=== PATIENT | female | born 1940 | race Caucasian/White ===

== ENCOUNTER 2016-11-12 10:59 | Emergency (ER) | payer MEDICARE, MEDICAID ==
[~2016-11-12] VITALS: Ht 165.1 cm; Wt 71.4 kg
[~2016-11-12 10:59] MED LIST: HYDR-3240 PO
[2016-11-12] MEDS ORDERED: TRAZ100T15 PO (11:10)
[2016-11-12] MEDS ORDERED: GABA300C10 PO (11:10)
[2016-11-12] MEDS ORDERED: OMEP40CA6 PO (11:10)
[2016-11-12] MEDS ORDERED: LEVO112T4 PO (11:10)
[2016-11-12] MEDS ORDERED: SODIUM CHLORIDE 0.9% 1,000 ML IV ONE (11:28)
[2016-11-12] MEDS ORDERED: MORPHINE SULFATE 4 MG/ML, 1ML IVPush ONE (11:30)
[2016-11-12] MEDS ORDERED: ONDANSETRON 2MG/ML, 2ML IVPush ONE (11:30)
[2016-11-12] MEDS ORDERED: SODIUM CHLORIDE FLUSH 10ML SYR IVF ONE ×2 (11:30)
[2016-11-12] MEDS ORDERED: ONDANSETRON 2MG/ML, 2ML ONE (11:37)
[2016-11-12] MEDS ORDERED: MORPHINE SULFATE 4 MG/ML, 1ML ONE (11:37)
[2016-11-12 11:51] LABS: PATH.CAST-FLAG NOT PRESENT; SPERM-FLAG NOT PRESENT; SRC-FLAG NOT PRESENT; XTAL-FLAG NOT PRESENT; YLC-FLAG NOT PRESENT
[2016-11-12 11:52] LABS: HEMOGLOBIN 12.9 g/dL (11.7-16.4)
[2016-11-12 12:01] LABS: BLOOD UREA NITROGEN 13 mg/dL (7-18)
[2016-11-12] MEDS ORDERED: OMNIPAQUE 350 MG/ML, 100ML BOTTLE ONE (13:12)
[2016-11-12 13:39] VITALS: BP 134/61
== END 2016-11-12 15:21 | disposition home or self-care (01) ==
LOC: ED 13:14
DX: R10.12 Left upper quadrant pain (principal); K21.9 Gastro-esophageal reflux disease without esophagitis; E07.9 Disorder of thyroid, unspecified
CPT/HCPCS: 36415; 74177; 80048; 81001; 82040; 85025; 87086; 96361; 96374; 96375; 99285; J2405; J7030; Q9967

== ENCOUNTER 2018-01-04 12:30 | Emergency (ER) | payer MEDICARE, MEDICAID ==
[~2018-01-04] VITALS: Ht 165.1 cm; Wt 77.5 kg
[~2018-01-04 12:30] MED LIST changes: +GABA300C10 PO; +LEVO112T4 PO; +OMEP40CA6 PO; +TRAZ100T15 PO
[2018-01-04] MEDS ORDERED: GABA-827 PO (12:44)
[2018-01-04] MEDS ORDERED: ACYC-113 PO (12:49)
[2018-01-04] MEDS ORDERED: SODIUM CHLORIDE 0.9% 1,000ML IVBOLUS ONE (13:00)
[2018-01-04] MEDS ORDERED: SODIUM CHLORIDE FLUSH 10ML SYR IVF ONE (13:00)
[2018-01-04] MEDS ORDERED: MECLIZINE CHEWABLE 25 MG TAB ONE (13:20)
[2018-01-04] MEDS ORDERED: MECLIZINE CHEWABLE 25 MG TAB PO ONE (13:30)
[2018-01-04 13:44] LABS: BASOPHILS # (AUTO) 0.02 x10^3/uL (0-0.1); BASOPHILS % (AUTO) 0 % (0-1); EOSINOPHILS % (AUTO) 2 % (1-7); LYMPHOCYTES # (AUTO) 1.57 x10^3/uL (1-3.4); LYMPHOCYTES % (AUTO) 27 % (22-44); MD NO; MEAN CORPUSCULAR HEMOGLOBIN 30.4 pg (27.0-34.8); MEAN PLATELET VOLUME 7.9 fL (7.4-10.4); MONOCYTES # (AUTO) 0.44 x10^3/uL (0.2-0.8); MONOCYTES % (AUTO) 7 % (2-9); NEUTROPHILS # (AUTO) 3.76 x10^3/uL (1.8-6.8); NEUTROPHILS % (AUTO) 64 % (42-75); PLATELET COUNT 253 x10^3/uL (130-400); RED BLOOD COUNT 4.83 x10^6/uL (3.82-5.3); RED CELL DISTRIBUTION WIDTH 13.4 % (9.6-15.2)
[2018-01-04 13:49] LABS: CHLORIDE 106 mmol/L (98-107)
[2018-01-04 13:50] LABS: MICROSCOPIC NOT IND
[2018-01-04 13:55] LABS: ALBUMIN 3.5 g/dL (3.4-5.0); ANION GAP 6 mmol/L (5-15); CALCIUM 8.3 mg/dL (8.5-10.1); CREATININE 0.64 mg/dL (0.55-1.02)
[2018-01-04 13:58] LABS: CULTURE INDICATED? NO
[2018-01-04 14:13] LABS: TROPONIN I < 0.015 ng/mL (0.000-0.045)
[2018-01-04 15:04] VITALS: BP 154/88
== END 2018-01-04 15:06 | disposition home or self-care (01) ==
LOC: ED 13:52
DX: R42 Dizziness and giddiness (principal); K21.9 Gastro-esophageal reflux disease without esophagitis
CPT/HCPCS: 36415; 70450; 80048; 81003; 82040; 84484; 85025; 93005; 96360; 96361; 99285; J7030

== ENCOUNTER 2018-05-17 10:35 | Emergency (ER) | payer MEDICARE, MEDICAID ==
[~2018-05-17] VITALS: Ht 165.1 cm; Wt 70.0 kg
[~2018-05-17 10:35] MED LIST changes: +ACYC-113 PO; +GABA-827 PO; +TRAZ-137 PO; -TRAZ100T15 PO
[2018-05-17 11:15] VITALS: BP 149/79
[2018-05-17] MEDS ORDERED: SODIUM CHLORIDE FLUSH 10ML SYR IVF ONE (11:30)
[2018-05-17 12:00] LABS: BASOPHILS # (AUTO) 0.06 x10^3/uL (0-0.1); BASOPHILS % (AUTO) 1 % (0-1); EOSINOPHILS % (AUTO) 1 % (1-7); LYMPHOCYTES # (AUTO) 1.39 x10^3/uL (1-3.4); LYMPHOCYTES % (AUTO) 16 % (22-44); MD NO; MEAN CORPUSCULAR HEMOGLOBIN 31.9 pg (27.0-34.8); MEAN CORPUSCULAR HGB CONC 33.6 g/dL (32.4-35.8); MEAN CORPUSCULAR VOLUME 94.9 fL (80-100); MEAN PLATELET VOLUME 8.2 fL (7.4-10.4); MONOCYTES # (AUTO) 0.82 x10^3/uL (0.2-0.8); MONOCYTES % (AUTO) 9 % (2-9); NEUTROPHILS # (AUTO) 6.58 x10^3/uL (1.8-6.8); NEUTROPHILS % (AUTO) 74 % (42-75); PLATELET COUNT 222 x10^3/uL (130-400)
[2018-05-17 12:06] LABS: ALBUMIN 3.6 g/dL (3.4-5.0); ANION GAP 7 mmol/L (5-15); CALCIUM 8.7 mg/dL (8.5-10.1); CHLORIDE 103 mmol/L (98-107)
[2018-05-17 12:13] LABS: ALANINE AMINOTRANSFERASE 11 U/L (12-78); ALKALINE PHOSPHATASE 50 U/L (45-117); BILIRUBIN,TOTAL 0.6 mg/dL (0.2-1.0); CREATININE 0.62 mg/dL (0.55-1.02); TOTAL PROTEIN 6.9 g/dL (6.4-8.2); TROPONIN I < 0.015 ng/mL (0.000-0.045)
[2018-05-17] MEDS ORDERED: OMNIPAQUE 350 MG/ML, 100ML BOTTLE ONE (12:45)
== END 2018-05-17 13:16 | disposition home or self-care (01) ==
LOC: ED 12:43
DX: J20.8 Acute bronchitis due to other specified organisms (principal); B97.89 Other viral agents as the cause of diseases classified elsewhere; F32.9 Major depressive disorder, single episode, unspecified; K21.9 Gastro-esophageal reflux disease without esophagitis; G89.29 Other chronic pain; Z87.891 Personal history of nicotine dependence; Z86.39 Personal history of other endocrine, nutritional and metabolic disease
CPT/HCPCS: 36415; 71275; 80053; 83605; 83880; 84484; 85025; 87040; 93005; 99285; Q9967

== ENCOUNTER 2018-05-24 09:48 | Emergency (ER) | payer MEDICARE, MEDICAID ==
[~2018-05-24] VITALS: Ht 165.1 cm; Wt 70.5 kg
[2018-05-24 10:53] LABS: BASOPHILS # (AUTO) 0.07 x10^3/uL (0-0.1); BASOPHILS % (AUTO) 1 % (0-1); EOSINOPHILS # (AUTO) 0.23 x10^3/uL (0-0.4); EOSINOPHILS % (AUTO) 2 % (1-7); LYMPHOCYTES # (AUTO) 2.54 x10^3/uL (1-3.4); LYMPHOCYTES % (AUTO) 20 % (22-44); MD NO; MEAN CORPUSCULAR HEMOGLOBIN 31.4 pg (27.0-34.8); MEAN CORPUSCULAR HGB CONC 33.4 g/dL (32.4-35.8); MEAN PLATELET VOLUME 7.6 fL (7.4-10.4); MONOCYTES # (AUTO) 1.07 x10^3/uL (0.2-0.8); MONOCYTES % (AUTO) 9 % (2-9); NEUTROPHILS # (AUTO) 8.68 x10^3/uL (1.8-6.8); NEUTROPHILS % (AUTO) 69 % (42-75); PLATELET COUNT 462 x10^3/uL (130-400); RED BLOOD COUNT 4.69 x10^6/uL (3.82-5.3); RED CELL DISTRIBUTION WIDTH 12.5 % (9.6-15.2)
[2018-05-24 11:02] LABS: ALBUMIN 3.7 g/dL (3.4-5.0); ANION GAP 7 mmol/L (5-15); CALCIUM 8.4 mg/dL (8.5-10.1); CHLORIDE 100 mmol/L (98-107); CREATININE 0.81 mg/dL (0.55-1.02)
[2018-05-24] MEDS ORDERED: POTASSIUM CHLORIDE 20 MEQ TAB.ER.PRT PO ONE (11:30)
[2018-05-24 11:46] VITALS: BP 145/59
[2018-05-24] MEDS ORDERED: POTASSIUM CHLORIDE 20 MEQ TAB.ER.PRT ONE (11:48)
== END 2018-05-24 12:20 | disposition home or self-care (01) ==
LOC: ED 10:06
DX: J40 Bronchitis, not specified as acute or chronic (principal); F32.9 Major depressive disorder, single episode, unspecified; G89.29 Other chronic pain; Z86.39 Personal history of other endocrine, nutritional and metabolic disease
CPT/HCPCS: 36415; 71045; 80048; 82040; 85025; 93005; 99285

== ENCOUNTER 2019-02-26 06:30 | Emergency (ER) | payer MEDICARE, MEDICAID ==
[~2019-02-26] VITALS: Ht 165.1 cm; Wt 64.0 kg
[2019-02-26] MEDS ORDERED: MAALOX/HYOSCYAMINE/LIDOCAINE 45 ML BTL ONE (06:34)
[2019-02-26] MEDS ORDERED: FAMOTIDINE 20 MG TABLET ONE (06:42)
[2019-02-26 06:55] LABS: BASOPHILS # (AUTO) 0.02 x10^3/uL (0-0.1); BASOPHILS % (AUTO) 1 % (0-1); EOSINOPHILS # (AUTO) 0.06 x10^3/uL (0-0.4); EOSINOPHILS % (AUTO) 2 % (1-7); LYMPHOCYTES % (AUTO) 36 % (22-44); MD NO; MEAN CORPUSCULAR HEMOGLOBIN 31.2 pg (27.0-34.8); MEAN CORPUSCULAR HGB CONC 33.5 g/dL (32.4-35.8); MEAN CORPUSCULAR VOLUME 93.3 fL (80-100); MEAN PLATELET VOLUME 7.4 fL (7.4-10.4); MONOCYTES # (AUTO) 0.39 x10^3/uL (0.2-0.8); MONOCYTES % (AUTO) 9 % (2-9); NEUTROPHILS % (AUTO) 53 % (42-75); PLATELET COUNT 242 x10^3/uL (130-400); RED BLOOD COUNT 4.51 x10^6/uL (3.82-5.3); RED CELL DISTRIBUTION WIDTH 13.7 % (9.6-15.2)
[2019-02-26] MEDS ORDERED: FAMOTIDINE 20 MG TABLET PO ONE (07:00)
[2019-02-26] MEDS ORDERED: MAALOX/HYOSCYAMINE/LIDOCAINE 45 ML BTL PO ONE (07:00)
[2019-02-26 07:07] LABS: ALANINE AMINOTRANSFERASE 15 U/L (12-78); ALBUMIN 3.4 g/dL (3.4-5.0); ANION GAP 9 mmol/L (5-15); CALCIUM 8.5 mg/dL (8.5-10.1); CHLORIDE 103 mmol/L (98-107); CREATININE 0.55 mg/dL (0.55-1.02)
[2019-02-26 07:11] LABS: ALKALINE PHOSPHATASE 42 U/L (45-117); BILIRUBIN,TOTAL 0.6 mg/dL (0.2-1.0); TOTAL PROTEIN 6.4 g/dL (6.4-8.2); TROPONIN I < 0.015 ng/mL (0.000-0.045)
[2019-02-26 07:49] VITALS: BP 140/73
--- NOTE | 2019-02-26 07:49 | NUR ---
PT STATES PAIN IMPROVED SINCE GI COCKTAIL. RE-EVAL AND TO BE DISCHARGED
== END 2019-02-26 07:59 | disposition home or self-care (01) ==
LOC: ED 07:50
DX: K21.9 Gastro-esophageal reflux disease without esophagitis (principal); R07.89 Other chest pain; M54.9 Dorsalgia, unspecified; G89.29 Other chronic pain; F32.9 Major depressive disorder, single episode, unspecified
CPT/HCPCS: 36415; 71045; 80053; 83690; 84484; 85025; 93005; 99284

== ENCOUNTER 2019-09-25 10:37 | Emergency (ER) | payer MEDICARE, MEDICAID ==
[~2019-09-25] VITALS: Ht 165.1 cm; Wt 67.0 kg
[~2019-09-25 10:37] MED LIST changes: +OMEP40CA42 PO; -OMEP40CA6 PO; -TRAZ-137 PO; +TRAZ-175 PO
[2019-09-25 10:51] VITALS: BP 166/89
[2019-09-25 11:31] LABS: BASOPHILS # (AUTO) 0.05 x10^3/uL (0-0.1); BASOPHILS % (AUTO) 1 % (0-1); EOSINOPHILS # (AUTO) 0.17 x10^3/uL (0-0.4); EOSINOPHILS % (AUTO) 3 % (1-7); LYMPHOCYTES # (AUTO) 1.46 x10^3/uL (1-3.4); LYMPHOCYTES % (AUTO) 23 % (22-44); MD NO; MEAN CORPUSCULAR HEMOGLOBIN 31.3 pg (27.0-34.8); MEAN CORPUSCULAR HGB CONC 33.2 g/dL (32.4-35.8); MEAN CORPUSCULAR VOLUME 94.2 fL (80-100); MEAN PLATELET VOLUME 7.7 fL (7.4-10.4); MONOCYTES # (AUTO) 0.44 x10^3/uL (0.2-0.8); MONOCYTES % (AUTO) 7 % (2-9); NEUTROPHILS # (AUTO) 4.15 x10^3/uL (1.8-6.8); NEUTROPHILS % (AUTO) 66 % (42-75); PLATELET COUNT 293 x10^3/uL (130-400); RED BLOOD COUNT 4.41 x10^6/uL (3.82-5.3); RED CELL DISTRIBUTION WIDTH 13.7 % (9.6-15.2)
[2019-09-25 11:36] LABS: MICROSCOPIC INDICATED
[2019-09-25 11:42] LABS: ALANINE AMINOTRANSFERASE 22 U/L (12-78); ALBUMIN 3.6 g/dL (3.4-5.0); ANION GAP 2 mmol/L (5-15); CALCIUM 8.4 mg/dL (8.5-10.1); CHLORIDE 100 mmol/L (98-107); CREATININE 0.78 mg/dL (0.55-1.02)
[2019-09-25 11:44] LABS: CULTURE INDICATED? NO
--- NOTE | 2019-09-25 11:47 | NUR ---
PT BEING RE-EVALUATED BY PROVIDER
[2019-09-25 11:52] LABS: ALKALINE PHOSPHATASE 52 U/L (45-117); BILIRUBIN,TOTAL 0.6 mg/dL (0.2-1.0); TOTAL PROTEIN 6.7 g/dL (6.4-8.2)
== END 2019-09-25 12:06 | disposition home or self-care (01) ==
LOC: ED 10:38
DX: R19.7 Diarrhea, unspecified (principal); R30.0 Dysuria; G89.29 Other chronic pain; K21.9 Gastro-esophageal reflux disease without esophagitis; Z87.891 Personal history of nicotine dependence; Z86.39 Personal history of other endocrine, nutritional and metabolic disease
CPT/HCPCS: 36415; 80053; 81001; 84443; 85025; 93005; 99284

== ENCOUNTER 2020-03-06 12:42 | Outpatient (CLI) | payer MEDICARE, MEDICAID ==
[2020-03-06] MEDS ORDERED: GABA-826 PO (13:22)
[2020-03-06] MEDS ORDERED: IBUP1TAB11 PO (13:22)
[2020-03-06] MEDS ORDERED: ACET-1600 PO (13:22)
== END 2020-03-06 23:59 | disposition home or self-care (01) ==
LOC: STAR 12:42
PROVIDERS: ATTEND Orthopaedic Surgery
DX: Z01.818 Encounter for other preprocedural examination (principal); M19.011 Primary osteoarthritis, right shoulder; I49.8 Other specified cardiac arrhythmias; R94.31 Abnormal electrocardiogram [ECG] [EKG]
CPT/HCPCS: 87081; 93005

== ENCOUNTER 2020-03-19 10:44 | Emergency (ER) | payer MEDICARE, MEDICAID ==
[~2020-03-19] VITALS: Ht 165.1 cm; Wt 63.8 kg
[~2020-03-19 10:44] MED LIST changes: +ACET-1600 PO; +GABA-826 PO; +IBUP1TAB11 PO
--- NOTE | 2020-03-19 11:10 | NUR ---
XR AT BS.
[2020-03-19] MEDS ORDERED: ONDANSETRON 2MG/ML, 2ML ONE (11:27)
[2020-03-19] MEDS ORDERED: MORPHINE SULFATE 4 MG/ML, 1ML ONE ×2 (11:27→13:32)
[2020-03-19] MEDS ORDERED: ONDANSETRON 2MG/ML, 2ML IVPush ONE (11:30)
[2020-03-19] MEDS: MORPHINE SULFATE 4 MG/ML, 1ML IVPush PRN ×2 (11:36→13:34)
--- NOTE | 2020-03-19 12:05 | NUR ---
PT UPRIGHT ON GURNEY AWAKE & CALM, RESPONDS APPROP TO STAFF, C/O RT SHOULDER PAIN BUT NAD AT REST, COMFORT MEASURES PROVIDED, CALL LIGHT WITHIN REACH.
[2020-03-19 13:05] LABS: MICROSCOPIC AUTO
[2020-03-19 13:24] VITALS: BP 146/73
== END 2020-03-19 14:07 | disposition home or self-care (01) ==
LOC: ED 11:25
DX: S09.90XA Unspecified injury of head, initial encounter (principal); N30.00 Acute cystitis without hematuria; K21.9 Gastro-esophageal reflux disease without esophagitis; M25.511 Pain in right shoulder; E03.9 Hypothyroidism, unspecified; Z87.891 Personal history of nicotine dependence; W01.0XXA Fall on same level from slipping, tripping and stumbling without subsequent striking against object, initial encounter; Y93.89 Activity, other specified; Y92.048 Other place in boarding-house as the place of occurrence of the external cause; Y99.8 Other external cause status
CPT/HCPCS: 70450; 73020; 81001; 87077; 87086; 96374; 96375; 99285; J2270; J2405; 87186

== ENCOUNTER 2020-03-31 13:24 | Emergency (ER) | payer MEDICARE, MEDICAID ==
[~2020-03-31] VITALS: Ht 165.1 cm; Wt 60.0 kg
--- NOTE | 2020-03-31 13:56 | NUR ---
task rn: Pt arrives to ed with increased urinary frequency. Pt reports slight painful urination. Pt has been getting treated for a UTI since 03/15/2020 and has been on abx and no relief. Pt reports no other issues. Denies fevers.
--- NOTE | 2020-03-31 14:07 | NUR ---
pt amb to room 5, changed to gown, helped to bed awaiting md. dwight yates. as
--- NOTE | 2020-03-31 14:54 | NUR ---
ua walked to lab. culture from , so no straight cath per faith. vss. nad. as
[2020-03-31 14:56] LABS: BASOPHILS # (AUTO) 0.03 x10^3/uL (0-0.1); BASOPHILS % (AUTO) 1 % (0-1); EOSINOPHILS # (AUTO) 0.16 x10^3/uL (0-0.4); EOSINOPHILS % (AUTO) 4 % (1-7); LYMPHOCYTES # (AUTO) 1.08 x10^3/uL (1-3.4); LYMPHOCYTES % (AUTO) 26 % (22-44); MD NO; MEAN CORPUSCULAR HEMOGLOBIN 30.5 pg (27.0-34.8); MEAN CORPUSCULAR HGB CONC 32.8 g/dL (32.4-35.8); MEAN CORPUSCULAR VOLUME 92.9 fL (80-100); MONOCYTES # (AUTO) 0.37 x10^3/uL (0.2-0.8); MONOCYTES % (AUTO) 9 % (2-9); NEUTROPHILS # (AUTO) 2.46 x10^3/uL (1.8-6.8); NEUTROPHILS % (AUTO) 60 % (42-75); PLATELET COUNT 376 x10^3/uL (130-400); RED BLOOD COUNT 3.73 x10^6/uL (3.82-5.3); RED CELL DISTRIBUTION WIDTH 13.5 % (9.6-15.2)
[2020-03-31] MEDS ORDERED: FOSFOMYCIN 3 GM PACKET PO ONE (15:00)
[2020-03-31 15:02] LABS: ALANINE AMINOTRANSFERASE 11 U/L (12-78); ANION GAP 5 mmol/L (5-15); CALCIUM 8.2 mg/dL (8.5-10.1); CHLORIDE 106 mmol/L (98-107)
[2020-03-31 15:05] LABS: ALKALINE PHOSPHATASE 54 U/L (45-117); BILIRUBIN,TOTAL 0.2 mg/dL (0.2-1.0); CREATININE 0.41 mg/dL (0.55-1.02); TOTAL PROTEIN 5.9 g/dL (6.4-8.2)
[2020-03-31 15:09] LABS: MICROSCOPIC INDICATED
--- NOTE | 2020-03-31 15:26 | NUR ---
med req from pharm. as
[2020-03-31 15:48] VITALS: BP 151/68
--- NOTE | 2020-03-31 15:49 | NUR ---
meds per mar vss nad. as
== END 2020-03-31 16:27 | disposition home or self-care (01) ==
LOC: ED 16:15
DX: N30.00 Acute cystitis without hematuria (principal); E03.9 Hypothyroidism, unspecified; K21.9 Gastro-esophageal reflux disease without esophagitis
CPT/HCPCS: 36415; 80053; 81001; 85025; 87077; 87086; 87186; 99283

== ENCOUNTER 2020-04-09 12:07 | Emergency (ER) | payer MEDICAID, MEDICARE ==
[~2020-04-09] VITALS: Ht 165.1 cm; Wt 65.9 kg
--- NOTE | 2020-04-09 12:55 | NUR ---
PT ARRIVED BY AMBULANCE C/O NAUSEA FOR 1 WEEK. MD AT BEDSIDE AND ORDERED STRAIGHT CATH FOR BLADDER INFECTION. PT ASSESSMENT, 3P'S, AND CLINICAL SCREENING DONE. AWAITING FURTHER ORDERS.
[2020-04-09 13:09] LABS: MICROSCOPIC NOT IND
[2020-04-09 13:12] LABS: BASOPHILS # (AUTO) 0.01 x10^3/uL (0-0.1); BASOPHILS % (AUTO) 0 % (0-1); EOSINOPHILS % (AUTO) 3 % (1-7); LYMPHOCYTES # (AUTO) 0.84 x10^3/uL (1-3.4); LYMPHOCYTES % (AUTO) 24 % (22-44); MD NO; MEAN CORPUSCULAR HEMOGLOBIN 30.3 pg (27.0-34.8); MEAN CORPUSCULAR HGB CONC 32.9 g/dL (32.4-35.8); MEAN CORPUSCULAR VOLUME 92.1 fL (80-100); MEAN PLATELET VOLUME 7.1 fL (7.4-10.4); MONOCYTES # (AUTO) 0.38 x10^3/uL (0.2-0.8); MONOCYTES % (AUTO) 11 % (2-9); NEUTROPHILS # (AUTO) 2.18 x10^3/uL (1.8-6.8); NEUTROPHILS % (AUTO) 62 % (42-75); PLATELET COUNT 290 x10^3/uL (130-400); RED BLOOD COUNT 3.83 x10^6/uL (3.82-5.3); RED CELL DISTRIBUTION WIDTH 13.6 % (9.6-15.2)
--- NOTE | 2020-04-09 13:48 | NUR ---
PUREWICK PLACED FOR PT FREQUENT URGE TO URINATE.
[2020-04-09 14:01] LABS: ALANINE AMINOTRANSFERASE 11 U/L (12-78); ALBUMIN 3.2 g/dL (3.4-5.0); ANION GAP 5 mmol/L (5-15); CHLORIDE 103 mmol/L (98-107); CREATININE 1.39 mg/dL (0.55-1.02)
[2020-04-09 14:03] LABS: ALKALINE PHOSPHATASE 49 U/L (45-117); BILIRUBIN,TOTAL 0.4 mg/dL (0.2-1.0); TOTAL PROTEIN 6.2 g/dL (6.4-8.2)
--- NOTE | 2020-04-09 15:18 | NUR ---
DELAYED ENTRY DUE TO PT CARE. STRAIGHT CATH AT 1305.
[2020-04-09 15:19] VITALS: BP 150/63
--- NOTE | 2020-04-09 15:20 | NUR ---
PT IV D/C. PT PLACED IN WHEELCHAIR AND MOVED TO DC DESK. PT WILL GET A TAXI TO GO HOME WHERE SHE HAS A FRIEND THERE TO ASSIST.
[2020-04-09 16:14] LABS: CALCIUM 8.9 mg/dL (8.5-10.1)
== END 2020-04-09 15:30 | disposition home or self-care (01) ==
LOC: ED 15:28
DX: N18.2 Chronic kidney disease, stage 2 (mild) (principal); R10.9 Unspecified abdominal pain; R19.7 Diarrhea, unspecified; R30.0 Dysuria; E03.9 Hypothyroidism, unspecified; K21.9 Gastro-esophageal reflux disease without esophagitis; Z87.891 Personal history of nicotine dependence
CPT/HCPCS: 36415; 80053; 81003; 85025; 93005; 99284

== ENCOUNTER 2020-09-23 07:54 | Emergency (ER) | payer MEDICARE, MEDICAID ==
[~2020-09-23] VITALS: Ht 165.1 cm; Wt 56.1 kg
[~2020-09-23 07:54] MED LIST changes: +AMLO-211 PO; +BISA10SU4 PR; +DOCU100C33 PO; +ENOX40SY4 SQ; +HYDR-1067 PO; +HYDR-3237 PO; -HYDR-3240 PO
--- NOTE | 2020-09-23 08:18 | NUR ---
PROVIDER AT BEDSIDE FOR ASSESSMENT AND TO DISCUSS PLAN OF CARE
--- NOTE | 2020-09-23 08:18 | NUR ---
PT COMES IN C/O "BLADDER PAIN" PT STATES DIFFICULTY URINATING AND PAINFUL URINATION. PT STATES "IM TIRED OF NOT BEING ABLE TO SLEEP. FOR THREE DAYS NOW". MONITORS CONNECTED. CALL LIGHT W/IN REACH. WARM BLANKETS PROVIDED
[2020-09-23 08:59] LABS: BASOPHILS % (AUTO) 1 % (0-1); EOSINOPHILS % (AUTO) 0 % (1-7); LYMPHOCYTES % (AUTO) 19 % (22-44); MEAN CORPUSCULAR HEMOGLOBIN 30.8 pg (27.0-34.8); MEAN CORPUSCULAR HGB CONC 33.6 g/dL (32.4-35.8); MONOCYTES % (AUTO) 7 % (2-9); NEUTROPHILS % (AUTO) 73 % (42-75); PLATELET COUNT 337 x10^3/uL (130-400); RED BLOOD COUNT 3.81 x10^6/uL (3.82-5.3); RED CELL DISTRIBUTION WIDTH 14.1 % (9.6-15.2)
[2020-09-23 09:00] LABS: MD NO
[2020-09-23 09:01] LABS: MICROSCOPIC INDICATED
[2020-09-23 09:06] LABS: ALBUMIN 3.1 g/dL (3.4-5.0); ANION GAP 7 mmol/L (5-15); CALCIUM 8.4 mg/dL (8.5-10.1); CHLORIDE 103 mmol/L (98-107); CREATININE 0.51 mg/dL (0.55-1.02)
[2020-09-23] MEDS ORDERED: RIVA10TA2 PO (09:08)
--- NOTE | 2020-09-23 09:09 | NUR ---
PT RESTING ON [email or web address]. MED REC COMPLETE. UA COLLECTED. VSS. NAD. CALL LIGHT W/IN REACH. WILL CONTINUE TO MONITOR
--- NOTE | 2020-09-23 10:04 | NUR ---
PT AMBULATED TO DISCHARGE W/WALKER ASSISTANCE. PT ENCOURAGED TO FOLLOWUP DISCUSSED. PT EDUCATED TO RETURN TO THE ED W/WORSENING SYMPTOMS. RX GIVEN TO PT.
[2020-09-23 10:06] VITALS: BP 147/73
== END 2020-09-23 10:08 | disposition home or self-care (01) ==
LOC: ED 09:27
DX: N30.00 Acute cystitis without hematuria (principal); K21.9 Gastro-esophageal reflux disease without esophagitis; Z86.718 Personal history of other venous thrombosis and embolism
CPT/HCPCS: 36415; 80048; 81001; 82040; 85025; 87077; 87086; 87186; 99283

== ENCOUNTER 2021-02-01 08:27 | Emergency (ER) | payer MEDICARE, MEDICAID ==
[~2021-02-01] VITALS: Ht 165.1 cm; Wt 66.0 kg
[~2021-02-01 08:27] MED LIST changes: -ACYC-113 PO; +ACYC200C13 PO; -HYDR-1067 PO; +HYDR-2214 PO; -OMEP40CA42 PO; +OMEP40CA8 PO; +RIVA10TA2 PO
--- NOTE | 2021-02-01 08:30 | NUR ---
THIS IS A 80YO F W/ C/O BACK PAIN X2 YEARS, WORSE X5 WEEKS. PT REPORTS RECENT ER VISIT IN [place] FOR SAME WHILE VISITING FAMILY. PT HAS HX OF SCIATICA, HYPOHROID AND OSTEOPOROSIS. PT REPORTS IS ABLE TO GET IN TO PCP WHO PRESCRIBES PAIN MEDS. PT REPORTS ABLE TO TAKE TAXIS. AT BEDSIDE FOR ED EVAL. JALEN FLANNERY.
[2021-02-01] MEDS ORDERED: KETOROLAC 30 MG/1 ML ONE (08:43)
[2021-02-01] MEDS ORDERED: HYDROcodone/APAP 5/325 TABLET ONE (08:44)
[2021-02-01] MEDS ORDERED: GABAPENTIN 300 MG CAPSULE ONE (08:44)
[2021-02-01 08:51] VITALS: BP 150/85
[2021-02-01] MEDS ORDERED: GABAPENTIN 300 MG CAPSULE PO ONE (09:00)
[2021-02-01] MEDS ORDERED: HYDROcodone/APAP 5/325 TABLET PO ONE (09:00)
[2021-02-01] MEDS ORDERED: KETOROLAC 30 MG/1 ML IM ONE (09:00)
--- NOTE | 2021-02-01 09:08 | NUR ---
PT VERBALIZED UNDERSTANDING OF DC INSTRUCTIONS, AMBULATORY W/ A STEADY GAIT USING HOME WALKER. PROVIDED TAXI VOUCHER PER PT REQUEST. THIS RN HELPED PT INTO TAXI. PT IN POSSESSION OF PURSE AND WALKER. RESP EVEN AND UNLABORED, JALEN.
== END 2021-02-01 09:10 | disposition home or self-care (01) ==
LOC: ED 08:47
DX: M54.42 Lumbago with sciatica, left side (principal); M54.41 Lumbago with sciatica, right side; K21.9 Gastro-esophageal reflux disease without esophagitis; Z87.891 Personal history of nicotine dependence; E03.9 Hypothyroidism, unspecified; Z86.718 Personal history of other venous thrombosis and embolism
CPT/HCPCS: 96372; 99283; J1885